=== PATIENT | female | born 1960 | race African-American/Black ===

== ENCOUNTER 2016-04-24 17:32 | Inpatient (IN) ==
[2016-04-24] MEDS ORDERED: CEFTAROLINE 600 MG in SODIUM CHLORIDE 0.9% 100 ML IV STA (22:46)
[2016-04-24 23:19] LABS: Basophils % 0.2 % (0.0-0.8); Hematocrit 34.5 VOL% (35.7-47.0); Hemoglobin 11.2 GM/DL (12.0-16.0); Immature Granulocytes % 0.5 %; Lymphocytes # 1.5 10*3/uL (1.4-4.0); Lymphocytes % 7.9 % (21.3-54.2); Mean Corpuscular HGB Conc 32.5 GM/DL (32-36); Mean Corpuscular Hemoglobin 27 PG (27-34); Mean Corpuscular Volume 82.3 FL (87-102); Mean Platelet Volume 11.7 FL (9.6-12.0); Monocytes # 0.8 10*3/uL (0.11-0.8); Monocytes % 4.4 % (1.7-12.7); Neutrophils # 16.1 10*3/uL (1.4-7.4); Platelet Count 168 T/CUMM (130-400); Red Blood Count 4.19 MC/CUMM (3.8-5.5); Red Cell Distribution Width 17.6 % (9.3-17.3); White Blood Count 18.5 T/CUMM (4-12)
[2016-04-24] MEDS ORDERED: CEFTAROLINE 600 MG VIAL IV ONE (23:20)
[2016-04-24] MEDS ORDERED: SODIUM CHLORIDE 0.9% 100 ML IV ONE (23:20)
[2016-04-24] MEDS ORDERED: ZALEPLON 5 MG CAPSULE PO PRN (23:32)
[2016-04-24] MEDS ORDERED: ONDANSETRON 4 MG/2 ML VIAL IV PRN (23:32)
[2016-04-24] MEDS ORDERED: MORPHINE 2 MG/1 ML SYRINGE IV PRN (23:32)
[2016-04-24] MEDS ORDERED: DOCUSATE SODIUM 100 MG CAPSULE PO PRN (23:32)
--- NOTE | 2016-04-24 23:32 | Emergency Department Note ---
ICraig Emily, am scribing for, and in the presence of, Evan Lopez MD 22: 58. IJohn Robert M, MD, personally performed the services described in this documentation, ascribed by Esthela Srinivasan in my presence, and it is both accurate and complete 331 . Arrival - Arrival Chief Complaint: Non-Specific Stated Complaint: DEHYDRATED, BLOOD IN URINE, TENDERNESS IN FOOT ED Nursing Triage Note: pt to triage via wc with c/o having multi c/o. pt states having right foot pain and burning onset last night with hematuria onset today. pt states having chills/headache,runny nose and nasal congestion Mode of Arrival: Wheelchair Limitations: No Limitations Source: Patient - History of Present Illness HPI Narrative: Pt is a 55 y/o female who came to ED with c/o hematuria and right foot pain that started last night. Pt has associated sxs chills, weakness, decreased appetite, but denies vomiting and SOB. Pt's PCP is Dr. Mckenzie. The right foot and lower leg are also swollen and reddened. Onset (ago): day(s) Consistency: constant Severity: mild, moderate Severity scale (1-10): 4 Quality: aching Allergies/Adverse Reactions: Allergies Allergy/AdvReac Type Severity Reaction Status Date / Time atorvastatin [From Lipitor] Allergy ANAPHYLAXIS Verified 04/24/16 18:23 duloxetine [From Cymbalta] Allergy ANAPHYLAXIS Verified 04/24/16 18:23 methotrexate Allergy ANAPHYLAXIS Verified 04/24/16 18:23 Home Medications: Home Medications Medication Instructions Recorded Confirmed Type Ferrous Sulfate 325 mg PO BID 04/24/16 04/24/16 History Furosemide Tab [Lasix Tab] 20 mg PO DAILY PRN 04/24/16 04/24/16 History Gabapentin 300 mg PO BID 04/24/16 04/24/16 History Meclizine HCl 25 mg PO Q8H PRN 04/24/16 04/24/16 History Potassium Chloride [Klor-Con M20] 20 meq PO DAILY 04/24/16 04/24/16 History Telmisartan 40 mg PO DAILY 04/24/16 04/24/16 History Review of System - Review of System 12 point system: reviewed and no additional remarkable complaints except as stated - Review of System Constitutional: Present: chills, weakness, other (decreased appetite). Absent: fever Respiratory: Absent: respiratory distress Cardiovascular: Absent: chest pain Gastrointestinal: Present: nausea, other (red, orange urine). Absent: abdominal pain, vomiting Musculoskeletal: Present: leg pain (right foot pain with swelling) Skin: Present: rash (chronic) Neurological: Absent: headache Medical,Surgical,& Family Hx - Social History Smoking Status: Never smoker Frequency of Alcohol Use: None Type of Drug Use: None Marital Status: Lives With:: Spouse Functional capacity: independent ambulation Exam Vital Signs: Vital Signs Temperature 98.3 F 04/24/16 18:17 Pulse Rate 108 H 04/24/16 18:17 Respiratory Rate 17 04/24/16 18:17 Blood Pressure 154/85 04/24/16 18:17 O2 Sat by Pulse Oximetry 96 04/24/16 18:17 - General General appearance: alert, in no apparent distress - Head Head exam: Present: atraumatic, normocephalic - Eye Eye exam: Present: PERRL, EOMI - ENT ENT exam: Present: mucous membranes moist. Absent: mucous membranes dry - Neck Neck exam: Present: full ROM. Absent: tenderness - Chest Chest inspection: Present: symmetric chest wall rise. Absent: tenderness - Respiratory Respiratory exam: Present: normal lung sounds bilaterally. Absent: respiratory distress - Cardiovascular Cardiovascular exam: Present: regular rate, normal rhythm, normal heart sounds - Abdominal Exam Abdominal exam: Present: soft. Absent: tenderness - Extremities Exam Extremities exam: Present: full ROM, tenderness (swollen broken skin anteriorly and limited to below the right knee). Absent: pedal edema - Neurological Exam Neurological exam: Present: alert, oriented X3, CN II-XII intact. Absent: motor sensory deficit - Psychiatric Psychiatric exam: Present: normal affect, normal mood - Skin Skin exam: Present: warm, dry, rash (multiple, scattered pallipar lesions on upper and lower extremities) Course - Consultations Consultation #1: Dr. Reji Mckee will evaluate and admit the patient. Time: 23:31 Results - Labs CBC & BMP: 04/24/16 23:07 Disposition Clinical Impression: Cellulitis of right lower extremity Case discussed with: patient, patient's family Disposition: Still a Patient Condition: Stable Time of Disposition: 23:31
[2016-04-24] MEDS ORDERED: FUROSEMIDE 20 MG TABLET PO PRN (23:35)
[2016-04-24] MEDS ORDERED: MECLIZINE 25 MG TABLET PO PRN (23:35)
--- NOTE | 2016-04-24 23:36 | Hospitalist History & Physical ---
Assessment and Plan (1) Cellulitis of right lower extremity Status: Acute Assessment and plan: Admitted to the hospitalist service. Start Teflaro. Follow-up blood cultures. There does not appear to be any drainage from the lower extremity. lower extremity ultrasounds negative for DVT. Current Visit: Yes (2) Prurigo nodularis Status: Chronic Assessment and plan: Chronic condition. Followed by dermatology in [place]. Current Visit: Yes (3) HTN (hypertension) Status: Chronic Assessment and plan: Continue home medications. Current Visit: No Qualifiers: Hypertension type: essential hypertension Qualified Code(s): I10 - Essential (primary) hypertension History of Present Illness Chief complaint: leg pain and swelling History of present illness: Ms. Graves is a 55 [facility] of [facility] extremity pain and swelling. She reports symptoms began 2-3 days ago and have worsened. She has tenderness redness and swelling of the right lower extremity. She suffers from a chronic condition-prurigo nodularis, which causes multiple nodules that are pruritic to her wrapped all over her skin. It is likely that 1 of these areas started the infection in her right lower extremity. She reports subjective fever and chills. No nausea or vomiting. The symptoms are acute, worsening, and are severe. She is being admitted to inpatient status for IV antibiotics for treatment of her right lower extremity cellulitis. Workup in the emergency department revealed no DVT. Home Medications Medication Instructions Recorded Confirmed Type Ferrous Sulfate 325 mg PO BID 04/24/16 04/24/16 History Furosemide Tab [Lasix Tab] 20 mg PO DAILY PRN 04/24/16 04/24/16 History Gabapentin 300 mg PO BID 04/24/16 04/24/16 History Meclizine HCl 25 mg PO Q8H PRN 04/24/16 04/24/16 History Potassium Chloride [Klor-Con M20] 20 meq PO DAILY 04/24/16 04/24/16 History Telmisartan 40 mg PO DAILY 04/24/16 04/24/16 History Allergies Allergy/AdvReac Type Severity Reaction Status Date / Time atorvastatin [From Lipitor] Allergy ANAPHYLAXIS Verified 04/24/16 18:23 duloxetine [From Cymbalta] Allergy ANAPHYLAXIS Verified 04/24/16 18:23 methotrexate Allergy ANAPHYLAXIS Verified 04/24/16 18:23 Medical,Surgical,& Family Hx - Medical History Cardio: History of: Hypertension Other: History of: Skin Problems (prurigo nodularis) - Surgical History Reproductive Surgeries: Surgical HX of;: Breast Surgery, Hysterectomy Additional Surgical History: pilonodal cyst excision - Family History Family History: Reports;: Family Hypertension - Social History Smoking Status: Never smoker Frequency of Alcohol Use: None Type of Drug Use: None Marital Status: Lives With:: Spouse Functional capacity: independent ambulation 12 point system: reviewed and no additional remarkable complaints except as stated - Constitutional Constitutional: Present: chills, fever(s) Exam - Constitutional Vitals: Period Temp Pulse Resp BP Sys/Bui Pulse Ox Last 24 Hr 98.3 F 108 17 154/85 96 Exam: Constitutional System: Mild distress. No tremulousness. Head: Normocephalic, atraumatic. Ears, Nose and Throat System: No pain or tenderness. No epistaxis or discharge Eyes System: Pupils equal, round, and reactive. Extraocular muscles intact. Neck: Supple, without adenopathy, No jugular venous distention. No thyromegaly, neck mass, or prior surgery apparent. Respiratory System: Chest clear to auscultation. Cardiovascular System: Heart with regular rate and rhythm. No murmur. GI System: Abdomen soft, nontender. Normo active bowel sounds present. Musculoskeletal System: Lower extremities with 1+ pedal edema. Right lower extremity with significant redness and tenderness to palpation. Multiple nodules are noted throughout the upper and lower extremities. Full distal pulses. Neurological System: No discernable sensory deficit. No aphasia Psychiatric System: Conversation is rational Skin: Cellulitis changes are noted in the right lower extremity. With redness, erythema, Rubor and pain on palpation of the right lower extremity. The left lower extremity does not show any signs of cellulitis or infection. Multiple nodules are noted on the upper and lower extremities consistent with the patient 's diagnosis of prurigo nodularis. Results - Labs CBC & BMP: 04/24/16 23:07 Lab Results: I have reviewed the past 24 hour labs
[2016-04-24 23:56] LABS: Apearance,Urine CLOUDY (Clear); Bacteria,Urine Few /HPF (Few); Bilirubin,Urine Negative (Negative); Blood, Urine Large mg/dL (Negative); Glucose,Urine (UA) Negative (Negative); Ketones,Urine Negative (Negative); Mucus,Urine Occasional /LPF (Occasional); Nitrite,Urine Negative (Negative); Protein,Urine 100 MG/DL; RBC,Urine 277 /HPF (0-4); Squamous Epithelial Cell,Urine Occasional /HPF (0-10); Urine Color Red (Yellow); Urine Urobilinogen < 2.0 EU/DL (0.2-1.0); WBC,Urine 16 /HPF (0-6)
[2016-04-25 00:41] LABS: Lymphocytes 8 % (20-55); Platelet Estimate Adequate; Segmented Neutrophils 88 % (50-85)
[2016-04-25 00:42] LABS: Total Cells Counted 100
[2016-04-25 02:50] LABS: Calcium 8.4 MG/DL (8.5-10.1); Magnesium 1.5 MG/DL (1.8-2.4); Osmolality,Calculated 288.7 MOS/KG (273-304)
[2016-04-25 05:15] LABS: Basophils % 0.2 % (0.0-0.8); Eosinophils % 0.1 % (0.00-10.9); Hematocrit 31.3 VOL% (35.7-47.0); Hemoglobin 10.1 GM/DL (12.0-16.0); Immature Granulocytes % 0.8 %; Immature Granulocytes Absolute 0.13 #; Lymphocytes # 1.2 10*3/uL (1.4-4.0); Lymphocytes % 7.2 % (21.3-54.2); Mean Corpuscular HGB Conc 32.3 GM/DL (32-36); Mean Corpuscular Hemoglobin 27 PG (27-34); Mean Corpuscular Volume 82.8 FL (87-102); Monocytes # 0.9 10*3/uL (0.11-0.8); Monocytes % 5.5 % (1.7-12.7); Neutrophils # 13.7 10*3/uL (1.4-7.4); Neutrophils % 86.2 % (38.7-73.9); Platelet Count 163 T/CUMM (130-400); Red Blood Count 3.78 MC/CUMM (3.8-5.5); Red Cell Distribution Width 17.6 % (9.3-17.3); White Blood Count 15.9 T/CUMM (4-12)
[2016-04-25 05:36] LABS: Hypochromasia 1+; Lymphocytes 3 % (20-55); Ovalocytes Slight; Platelet Estimate Normal; Segmented Neutrophils 92 % (50-85); Total Cells Counted 100
[2016-04-25 05:37] LABS: Microcytosis Slight
--- NOTE | 2016-04-25 06:18 | Ultrasound Report ---
Exam: Right lower extremity venous Doppler/duplex ultrasound Comparison: None Clinical history: Right leg pain and swelling Technique: Duplex scan of the right lower extremity veins using th B- mode/grayscale imaging and Dopplers spectral analysis and color flow. Findings: There is normal compression and augmentation of the right common femoral, superficial femoral and popliteal veins. The proximal right greater saphenous veins appear to be patent. Major venous structures of the right lower extremity demonstrating normal course and caliber with normal color-flow study and spectral analysis. Impression: No evidence to suggest deep venous thrombosis within the right lower extremity. 10 x 12 x 15 mm right groin node. Ultrasound images were captured and stored. PROCEDURE INTERPRETED AT [facility] DEPARTMENT OF RADIOLOGY Final Report Signed by: Dr. Jeannette Navarrete
[2016-04-25] MEDS: POTASSIUM CHLORIDE 20 MEQ TABLET PO SCH (08:59)
[2016-04-25] MEDS: GABAPENTIN 300 MG CAPSULE PO SCH ×2 (09:00→20:56)
[2016-04-25] MEDS: FERROUS SULFATE 325 MG TABLET PO SCH ×2 (09:00→20:56)
[2016-04-25] MEDS: TELMISARTAN 40 MG TABLET PO SCH (09:00)
[2016-04-25] MEDS: CEFTAROLINE 600 MG in SODIUM CHLORIDE 0.9% 100 ML IV SCH ×2 (09:00→20:56)
[2016-04-25] MEDS: ENOXAPARIN 40 MG/0.4 ML SYRINGE SUBCUT SCH ×2 (09:00→09:07)
[2016-04-25] MEDS: PANTOPRAZOLE 40 MG TABLET PO SCH (09:07)
[2016-04-25] MEDS: ACETAMINOPHEN 325 MG TABLET PO PRN ×2 (09:39→20:56)
[2016-04-25] MEDS: FUROSEMIDE 40 MG/4 ML VIAL IV SCH ×2 (10:00→15:12)
--- NOTE | 2016-04-25 11:47 | Hospitalist Progress Note ---
Assessment and Plan (1) Cellulitis of right lower extremity Status: Acute Assessment and plan: Doppler USS of the right loer extremity showed no evidence of DVT but showed a [id number] right groin node. Continue with teflaro groin node to be addressed as outpatient. Current Visit: Yes (2) Prurigo nodularis Status: Chronic Assessment and plan: Doppler USS of the right loer extremity showed no evidence of DVT but showed a [id number] right groin node. Chronic condition. Followed by dermatology in [place]. Current Visit: Yes (3) HTN (hypertension) Status: Chronic Assessment and plan: controlled. continue current regime Current Visit: No Qualifiers: Hypertension type: essential hypertension Qualified Code(s): I10 - Essential (primary) hypertension (4) Bacteriuria Status: Acute Assessment and plan: will get UC/BC, patient already on antibiotics Current Visit: Yes Hospitalist: Subjective Interval history: Patient seen and she has no new complaints, she states she feels better. Doppler USS of the right loer extremity showed no evidence of DVT but showed a [id number] right groin node. Exam - Constitutional Vitals: Period Temp Pulse Resp BP Sys/Bui Pulse Ox Last 24 Hr 98.7 F-98.8 F 90-105 14-20 138-156/73-93 92-97 General appearance: no acute distress - Head Head exam: Present: normal inspection - Respiratory Respiratory exam: Present: clear to auscultation bilaterally - Cardiovascular Cardiovascular exam: Present: regular rate and rhythm - GI/Abdominal GI/Abdominal exam: Present: normal bowel sounds - Extremities Exam Extremities exam: Present: other (right leg swelling and tenderness) - Neurological Exam Neurological exam: Present: alert, oriented X3 - Skin Skin exam: Present: other (diffuse maculo-nodular lesions) Results - Labs CBC & BMP: 04/25/16 04:44 04/24/16 22:59 Lab Results: I have reviewed the past 24 hour labs
[2016-04-26 05:15] LABS: Basophils % 0.2 % (0.0-0.8); Eosinophils # 0.4 10*3/uL (0.0-0.87); Eosinophils % 2.8 % (0.00-10.9); Hematocrit 30.9 VOL% (35.7-47.0); Hemoglobin 10.2 GM/DL (12.0-16.0); Immature Granulocytes % 0.8 %; Lymphocytes # 1.5 10*3/uL (1.4-4.0); Lymphocytes % 11.6 % (21.3-54.2); Mean Corpuscular Hemoglobin 27 PG (27-34); Mean Corpuscular Volume 80.3 FL (87-102); Mean Platelet Volume 11.9 FL (9.6-12.0); Monocytes # 0.8 10*3/uL (0.11-0.8); Monocytes % 5.9 % (1.7-12.7); Neutrophils # 10.4 10*3/uL (1.4-7.4); Neutrophils % 78.7 % (38.7-73.9); Platelet Count 185 T/CUMM (130-400); Red Blood Count 3.85 MC/CUMM (3.8-5.5); Red Cell Distribution Width 17.5 % (9.3-17.3); White Blood Count 13.2 T/CUMM (4-12)
[2016-04-26 05:40] LABS: Eosinophils 3 % (0-10); Hypochromasia 1+; Lymphocytes 6 % (20-55); Microcytosis Slight; Platelet Estimate Adequate; Segmented Neutrophils 84 % (50-85); Total Cells Counted 100
[2016-04-26 05:51] LABS: Osmolality,Calculated 287.8 MOS/KG (273-304); Potassium 3.6 MMOL/L (3.5-5.1)
[2016-04-26] MEDS: FUROSEMIDE 40 MG/4 ML VIAL IV SCH ×2 (08:40→16:47)
[2016-04-26] MEDS: FERROUS SULFATE 325 MG TABLET PO SCH ×2 (08:41→22:05)
[2016-04-26] MEDS: POTASSIUM CHLORIDE 20 MEQ TABLET PO SCH (08:41)
[2016-04-26] MEDS: PANTOPRAZOLE 40 MG TABLET PO SCH (08:42)
[2016-04-26] MEDS: GABAPENTIN 300 MG CAPSULE PO SCH ×2 (08:42→22:05)
[2016-04-26] MEDS: CEFTAROLINE 600 MG in SODIUM CHLORIDE 0.9% 100 ML IV SCH ×2 (08:43→22:06)
[2016-04-26] MEDS: TELMISARTAN 40 MG TABLET PO SCH (08:43)
--- NOTE | 2016-04-26 10:17 | Hospitalist Progress Note ---
Assessment and Plan (1) Cellulitis of right lower extremity Status: Acute Assessment and plan: Doppler USS of the right lower extremity showed no evidence of DVT but showed a [id number] right groin node.Swelling and redness are slowly improving Continue with IV teflaro, Lasix groin node to be addressed as outpatient. Current Visit: Yes (2) Prurigo nodularis Status: Chronic Assessment and plan: Doppler USS of the right lower extremity showed no evidence of DVT but showed a [id number] right groin node. Chronic condition. Followed by dermatology in [place]. Current Visit: Yes (3) HTN (hypertension) Status: Chronic Assessment and plan: controlled. Micardis will be held due to RF, we will start Norvasc 5mg daily, follow response Current Visit: No Qualifiers: Hypertension type: essential hypertension Qualified Code(s): I10 - Essential (primary) hypertension (4) Bacteriuria Status: Acute Assessment and plan: Follow UC, BC-negative so far, patient already on antibiotics Current Visit: Yes (5) Acute renal failure Status: Acute Assessment and plan: we will hold micardis and other nephrotoxics for now and reduce lasix. BMP in am. Current Visit: Yes Hospitalist: Subjective Interval history: Patient seen. Her right leg swelling is progressively improving. Exam - Constitutional Vitals: Period Temp Pulse Resp BP Sys/Bui Pulse Ox Last 24 Hr 98.3 F-99.9 F 89-95 18-20 113-136/62-71 92-97 General appearance: no acute distress, over weight - Head Head exam: Present: normal inspection - Respiratory Respiratory exam: Present: clear to auscultation bilaterally - Cardiovascular Cardiovascular exam: Present: regular rate and rhythm - GI/Abdominal GI/Abdominal exam: Present: normal bowel sounds - Extremities Exam Extremities exam: Present: other (reducing right leg swelling and tenderness)) - Skin Skin exam: Present: other (diffuse maculo-nodular lesions)) Results - Labs CBC & BMP: 04/26/16 04:38 04/26/16 04:38 Lab Results: I have reviewed the past 24 hour labs
[2016-04-26] MEDS: ENOXAPARIN 40 MG/0.4 ML SYRINGE SUBCUT SCH (16:51)
[2016-04-27 03:14] LABS: Osmolality,Calculated 288.1 MOS/KG (273-304); Potassium 3.5 MMOL/L (3.5-5.1)
[2016-04-27 03:18] LABS: Basophils % 0.1 % (0.0-0.8); Eosinophils # 0.4 10*3/uL (0.0-0.87); Eosinophils % 3.9 % (0.00-10.9); Hematocrit 30.9 VOL% (35.7-47.0); Immature Granulocytes % 0.6 %; Immature Granulocytes Absolute 0.06 #; Lymphocytes # 1.5 10*3/uL (1.4-4.0); Lymphocytes % 15.3 % (21.3-54.2); Mean Corpuscular HGB Conc 32.4 GM/DL (32-36); Mean Corpuscular Hemoglobin 27 PG (27-34); Mean Platelet Volume 12.5 FL (9.6-12.0); Monocytes # 0.7 10*3/uL (0.11-0.8); Monocytes % 6.8 % (1.7-12.7); Neutrophils # 7.1 10*3/uL (1.4-7.4); Neutrophils % 73.3 % (38.7-73.9); Platelet Count 181 T/CUMM (130-400); Red Blood Count 3.77 MC/CUMM (3.8-5.5); Red Cell Distribution Width 17.2 % (9.3-17.3); White Blood Count 9.7 T/CUMM (4-12)
[2016-04-27 05:00] LABS: Hypochromasia 1+
[2016-04-27 05:01] LABS: Microcytosis Slight; Ovalocytes Slight; Platelet Estimate Adequate
[2016-04-27] MEDS: FUROSEMIDE 40 MG/4 ML VIAL IV SCH (08:59)
[2016-04-27] MEDS: amLODIPine 5 MG TABLET PO SCH (09:00)
[2016-04-27] MEDS: POTASSIUM CHLORIDE 20 MEQ TABLET PO SCH (09:01)
[2016-04-27] MEDS: GABAPENTIN 300 MG CAPSULE PO SCH ×2 (09:01→21:58)
[2016-04-27] MEDS: FERROUS SULFATE 325 MG TABLET PO SCH ×2 (09:02→21:58)
[2016-04-27] MEDS: CEFTAROLINE 600 MG in SODIUM CHLORIDE 0.9% 100 ML IV SCH (09:02)
[2016-04-27] MEDS: PANTOPRAZOLE 40 MG TABLET PO SCH (09:02)
[2016-04-27] MEDS: ENOXAPARIN 40 MG/0.4 ML SYRINGE SUBCUT SCH (09:11)
[2016-04-27] MEDS: CEFTAROLINE 400 MG in SODIUM CHLORIDE 0.9% 100 ML IV SCH ×2 (09:11→22:03)
--- NOTE | 2016-04-27 13:47 | Hospitalist Progress Note ---
Assessment and Plan (1) Cellulitis of right lower extremity Status: Acute Assessment and plan: Doppler USS of the right lower extremity showed no evidence of DVT but showed a [id number] right groin node.Swelling and redness are slowly improving Continue with IV teflaro, Lasix groin node to be addressed as outpatient. Current Visit: Yes (2) Prurigo nodularis Status: Chronic Assessment and plan: Doppler USS of the right lower extremity showed no evidence of DVT but showed a [id number] right groin node. Chronic condition. Followed by dermatology in [place]. Current Visit: Yes (3) HTN (hypertension) Status: Chronic Assessment and plan: controlled on Norvasc. Micardis was held due to RF. Current Visit: No Qualifiers: Hypertension type: essential hypertension Qualified Code(s): I10 - Essential (primary) hypertension (4) Bacteriuria Status: Acute Assessment and plan: UC, BC-negative so far, patient already on antibiotics Current Visit: Yes (5) Acute renal failure Status: Acute Assessment and plan: not improving, we will reduce Lasix and continue to hold micardis and other nephrotoxics. BMP in am. Current Visit: Yes Hospitalist: Subjective Interval history: Patitnt seen walking around the corridor. She feels better and states her right foot feels less tight although its still swollen Exam - Constitutional Vitals: Period Temp Pulse Resp BP Sys/Bui Pulse Ox Last 24 Hr 97 F-99.1 F 74-93 20-20 117-152/61-74 93-97 General appearance: no acute distress - Head Head exam: Present: normal inspection - Respiratory Respiratory exam: Present: clear to auscultation bilaterally - Cardiovascular Cardiovascular exam: Present: regular rate and rhythm - GI/Abdominal GI/Abdominal exam: Present: normal bowel sounds - Extremities Exam Extremities exam: Present: edema - Neurological Exam Neurological exam: Present: alert, oriented X3 - Psychiatric Psychiatric exam: Present: normal affect - Skin Skin exam: Present: other ((diffuse maculo-nodular lesions))) Results - Labs CBC & BMP: 04/27/16 01:36 04/27/16 01:36 Lab Results: I have reviewed the past 24 hour labs
[2016-04-27] MEDS: FUROSEMIDE 20 MG/2 ML VIAL IV SCH (17:15)
[2016-04-28 06:58] LABS: Basophils % 0.3 % (0.0-0.8); Eosinophils # 0.5 10*3/uL (0.0-0.87); Hematocrit 30.7 VOL% (35.7-47.0); Hemoglobin 10.2 GM/DL (12.0-16.0); Immature Granulocytes % 0.7 %; Immature Granulocytes Absolute 0.05 #; Lymphocytes # 1.4 10*3/uL (1.4-4.0); Lymphocytes % 18.6 % (21.3-54.2); Mean Corpuscular HGB Conc 33.2 GM/DL (32-36); Mean Corpuscular Hemoglobin 27 PG (27-34); Mean Corpuscular Volume 80.4 FL (87-102); Mean Platelet Volume 12.5 FL (9.6-12.0); Monocytes # 0.7 10*3/uL (0.11-0.8); Monocytes % 8.7 % (1.7-12.7); Neutrophils % 64.7 % (38.7-73.9); Platelet Count 231 T/CUMM (130-400); Red Blood Count 3.82 MC/CUMM (3.8-5.5); Red Cell Distribution Width 17.4 % (9.3-17.3); White Blood Count 7.7 T/CUMM (4-12)
[2016-04-28 07:26] LABS: Eosinophils 8 % (0-10); Hypochromasia 1+; Lymphocytes 11 % (20-55); Platelet Estimate Adequate; Segmented Neutrophils 71 % (50-85); Total Cells Counted 100
[2016-04-28 07:37] LABS: Calcium 7.8 MG/DL (8.5-10.1); Osmolality,Calculated 291.7 MOS/KG (273-304)
[2016-04-28] MEDS: ENOXAPARIN 40 MG/0.4 ML SYRINGE SUBCUT SCH (08:38)
[2016-04-28] MEDS: amLODIPine 5 MG TABLET PO SCH (08:38)
[2016-04-28] MEDS: GABAPENTIN 300 MG CAPSULE PO SCH ×2 (08:39→20:39)
[2016-04-28] MEDS: POTASSIUM CHLORIDE 20 MEQ TABLET PO SCH (08:39)
[2016-04-28] MEDS: PANTOPRAZOLE 40 MG TABLET PO SCH (08:39)
[2016-04-28] MEDS: FERROUS SULFATE 325 MG TABLET PO SCH ×2 (08:39→20:39)
[2016-04-28] MEDS: FUROSEMIDE 20 MG/2 ML VIAL IV SCH ×2 (08:39→16:37)
[2016-04-28] MEDS: CEFTAROLINE 400 MG in SODIUM CHLORIDE 0.9% 100 ML IV SCH ×2 (08:53→20:39)
--- NOTE | 2016-04-28 17:09 | Hospitalist Progress Note ---
Assessment and Plan (1) Cellulitis of right lower extremity Status: Acute Assessment and plan: Doppler USS of the right lower extremity showed no evidence of DVT but showed a [id number] right groin node.Swelling and redness are slowly improving Continue with IV teflaro, Lasix groin node to be addressed as outpatient. Current Visit: Yes (2) Prurigo nodularis Status: Chronic Assessment and plan: Doppler USS of the right lower extremity showed no evidence of DVT but showed a [id number] right groin node. Chronic condition. Followed by dermatology in [place]. Current Visit: Yes (3) HTN (hypertension) Status: Chronic Assessment and plan: controlled on Norvasc. Micardis was held due to RF. Current Visit: No Qualifiers: Hypertension type: essential hypertension Qualified Code(s): I10 - Essential (primary) hypertension (4) Bacteriuria Status: Acute Assessment and plan: UC, BC-negative so far, patient already on antibiotics Current Visit: Yes (5) Acute renal failure Status: Acute Assessment and plan: not improving, continue low dose Lasix and continue to hold micardis and other nephrotoxics. BMP in am. Current Visit: Yes Hospitalist: Subjective Interval history: Patient seen. No new complaints. Exam - Constitutional Vitals: Period Temp Pulse Resp BP Sys/Bui Pulse Ox Last 24 Hr 98.1 F-98.6 F 57-89 18-20 101-146/52-82 90-97 General appearance: no acute distress - Head Head exam: Present: normal inspection - Respiratory Respiratory exam: Present: clear to auscultation bilaterally - Cardiovascular Cardiovascular exam: Present: regular rate and rhythm - GI/Abdominal GI/Abdominal exam: Present: normal bowel sounds - Extremities Exam Extremities exam: Present: other (diffuse maculo-nodular lesions)))) Results - Labs CBC & BMP: 04/28/16 05:27 04/28/16 05:27 Lab Results: I have reviewed the past 24 hour labs
[2016-04-29 05:45] LABS: Basophils % 0.3 % (0.0-0.8); Eosinophils # 0.5 10*3/uL (0.0-0.87); Eosinophils % 7.2 % (0.00-10.9); Hematocrit 30.1 VOL% (35.7-47.0); Immature Granulocytes % 0.9 %; Immature Granulocytes Absolute 0.07 #; Lymphocytes # 1.4 10*3/uL (1.4-4.0); Lymphocytes % 18.1 % (21.3-54.2); Mean Corpuscular HGB Conc 33.2 GM/DL (32-36); Mean Corpuscular Hemoglobin 27 PG (27-34); Mean Corpuscular Volume 80.5 FL (87-102); Mean Platelet Volume 12.2 FL (9.6-12.0); Monocytes # 0.8 10*3/uL (0.11-0.8); Neutrophils # 4.7 10*3/uL (1.4-7.4); Neutrophils % 62.5 % (38.7-73.9); Platelet Count 228 T/CUMM (130-400); Red Blood Count 3.74 MC/CUMM (3.8-5.5); Red Cell Distribution Width 17.5 % (9.3-17.3); White Blood Count 7.5 T/CUMM (4-12)
[2016-04-29 06:08] LABS: Osmolality,Calculated 290.7 MOS/KG (273-304); Potassium 4.2 MMOL/L (3.5-5.1)
[2016-04-29] MEDS: FUROSEMIDE 20 MG/2 ML VIAL IV SCH (08:25)
--- NOTE | 2016-04-29 08:29 | Discharge Summary ---
<Guerline Vegada - Last Filed: 04/29/16 08:46> Hospital Course - Hospital Course Hospital Course: This is a pleasant 55 year-old middle-aged female that presented to the ED on 04/24 with a chief compliant of lower extremity swelling and pain. She has a rather impressive medical history which includes: hypertension and purigo nodularis. Her purigo nodularis is chronic in nature; which is managed by dermatology locally. She reported the onset of symptoms 2 days prior to presentation. In addition, she also reported what she described as "chills and fever". She reported that the pain became very severe on the afternoon of presentation. She became alarmed and decided to seek medical attention. She was seen and evaluated. Ultrasound doppler of the bilateral lower extremities were negative for deep vein thrombosis. Blood cultures were obtained and empirical antibiotics were started She was admitted under the hospitalist services for right lower leg cellulitis and acute renal failure. Her condition has greatly improved since admission. In my opinion, she is appropriate for discharge home to follow-up with her PCP as directed. Discharge Plan - Discharge Data Disposition: Disch To Home/Self Care - Discharge Medications New Acetaminophen Tab [Tylenol Tab] 325 mg PO Q4H PRN #0 tablet PRN Reason: fever, headache/body aches amLODIPine [Norvasc] 5 mg PO DAILY #30 tablet HYDROcodone/ACETAMIN 10-325 [[place] 10-325] 1 tablet PO Q4H PRN #20 tablet PRN Reason: Pain Severe (8-10) Potassium Chloride Cap/Tab [K Dur] 10 meq PO DAILY #10 tablet Amoxicillin/Clav Tab [Augmentin Tab] 875 mg PO Q12H #14 tablet Docusate Sodium Cap [Colace Cap] 100 mg PO BID PRN #0 capsule PRN Reason: Constipation Continue Furosemide Tab [Lasix Tab] 20 mg PO DAILY PRN PRN Reason: fluid Gabapentin 300 mg PO BID Meclizine HCl 25 mg PO Q8H PRN PRN Reason: Dizziness Fexofenadine [[place]] 180 mg PO DAILY Ferrous Sulfate 325 mg PO BID Discontinued Potassium Chloride [Klor-Con M20] 20 meq PO DAILY PRN PRN Reason: Edema Telmisartan 40 mg PO DAILY - Follow Up or Referral - Forms/Instructions Exam - Constitutional Vitals: Period Temp Pulse Resp BP Sys/Bui Pulse Ox Last 24 Hr 97.9 F-98.9 F 81-91 15-20 121-139/62-75 92-97 Discharge Results Procedures and tests throughout hospitalization: Pending Orders 04/25/16 12:28 Blood Culture Stat 04/30/16 04:00 Magnesium IN AM Phosphorous IN AM Labs on day of discharge: Labs from last 24 hours 04/29/16 04/29/16 04/29/16 05:25 05:25 05:25 WBC RBC Hgb Hct MCV MCH MCHC RDW Plt Count MPV Neut % (Auto) Lymph % (Auto) [place] % (Auto) Eos % (Auto) Baso % (Auto) Neut # (Auto) Lymph # (Auto) [place] # (Auto) Eos # (Auto) Baso # (Auto) Immature Gran % Nucleated RBC % Immature Gran # Nucleated RBCs # Sodium 145 Potassium 4.2 Chloride 109 H Carbon Dioxide 27 Anion Gap 13.2 BUN 24 H Creatinine 2.20 H GFR Calculation 36 BUN/Creatinine Ratio 10.00 Glucose 81 Calculated Osmolality 290.7 Calcium 8.0 L Phosphorus 4.2 Magnesium 1.9 04/29/16 05:25 WBC 7.5 RBC 3.74 L Hgb 10.0 L Hct 30.1 L MCV 80.5 L MCH 27 MCHC 33.2 RDW 17.5 H Plt Count 228 MPV 12.2 H Neut % (Auto) 62.5 Lymph % (Auto) 18.1 L [place] % (Auto) 11.0 Eos % (Auto) 7.2 Baso % (Auto) 0.3 Neut # (Auto) 4.7 Lymph # (Auto) 1.4 [place] # (Auto) 0.8 Eos # (Auto) 0.5 Baso # (Auto) 0.0 Immature Gran % 0.9 Nucleated RBC % 0.0 Immature Gran # 0.07 Nucleated RBCs # 0.00 Sodium Potassium Chloride Carbon Dioxide Anion Gap BUN Creatinine GFR Calculation BUN/Creatinine Ratio Glucose Calculated Osmolality Calcium Phosphorus Magnesium Preliminary micro results at discharge 04/25/16 12:28 Blood Culture - Preliminary Blood No growth at 3 days 04/25/16 12:28 Blood Culture - Preliminary Blood No growth at 3 days DS: Provider Date of admission: 04/24/16 23:32 Primary care physician: . No PCP Attending physician on admission: Matilda Bridges MD Consults: 04/25/16 03:23 Consult to Pharmacy [CONS] Routine Reason for Pharmacy Consult: Adjust Meds Renal Funct Discharging clinician: Pedro Vega CNP <Matilda Bridges - Last Filed: 04/29/16 13:39> Hospital Course - Time spent with patient Time with patient DS: Greater than 30 minutes Diagnosis - Discharge Diagnosis (1) Cellulitis of right lower extremity Status: Acute (2) Prurigo nodularis Status: Chronic (3) HTN (hypertension) Status: Chronic (4) Bacteriuria Status: Acute (5) Acute renal failure Status: Acute Discharge Plan - Discharge Data Condition at Discharge: Stable Discharge Diet: advance to your usual diet Activity: resume usual activities as tolerated - Forms/Instructions Additional Discharge Instructions: follow with PCP in 1week Exam - Constitutional General appearance: no acute distress - Head Head exam: Present: normal inspection - Respiratory Respiratory exam: Present: clear to auscultation bilaterally - Cardiovascular Cardiovascular exam: Present: regular rate and rhythm - GI/Abdominal GI/Abdominal exam: Present: normal bowel sounds (other (diffuse maculo-nodular lesions))) - Extremities Exam Extremities exam: Present: other (other (diffuse maculo-nodular lesions)))
[2016-04-29] MEDS: POTASSIUM CHLORIDE 20 MEQ TABLET PO SCH (08:31)
[2016-04-29] MEDS: GABAPENTIN 300 MG CAPSULE PO SCH (08:32)
[2016-04-29] MEDS: FERROUS SULFATE 325 MG TABLET PO SCH (08:32)
[2016-04-29] MEDS: amLODIPine 5 MG TABLET PO SCH (08:32)
[2016-04-29] MEDS: ENOXAPARIN 40 MG/0.4 ML SYRINGE SUBCUT SCH (08:33)
[2016-04-29] MEDS: PANTOPRAZOLE 40 MG TABLET PO SCH (08:33)
[2016-04-29] MEDS: CEFTAROLINE 400 MG in SODIUM CHLORIDE 0.9% 100 ML IV SCH (08:48)
[2016-04-29 12:07] VITALS: BP 123/64
== END 2016-04-29 14:26 | disposition home or self-care (01) | DRG 603 ==
LOC: N.ED 17:32 → N.EDINP 23:32 → N.2E 04-25 00:20
PROVIDERS: ADMIT Internal Medicine; ATTEND Internal Medicine

== ENCOUNTER 2016-10-10 09:21 | Inpatient (IN) ==
--- NOTE | 2016-10-10 10:03 | Emergency Department Note ---
Sahil Gamez Hilary, am scribing for, and in the presence of, John Corona MD 09: 56. Chloe Gamez James D, MD, personally performed the services described in this documentation, ascribed by Stacia Baxter in my presence, and it is both accurate and complete . Arrival - Arrival Chief Complaint: Extremity Problem Stated Complaint: cellulitis,dehydration ED Nursing Triage Note: c/o right lower leg pain and redness onset 10/08/16. + subjective fever. Redness noted to right knee and right lower leg. Pain worse upon ambulation. Mode of Arrival: Wheelchair Limitations: No Limitations Source: Patient, RN Notes Reviewed Time Seen by Provider: 10/10/16 09:48 - History of Present Illness HPI Narrative: Pt is a 56 y/o female presenting to the ED with c/o right lower leg pain and redness which onset 2 days ago. Pt confirms right lower leg pain which worsened today and fever. No other complaints or problems stated in the ED. Onset (ago): day(s) Consistency: constant Severity: mild Severity scale (1-10): 1 Quality: burning Date of Last Menstrual Period: hyst Allergies/Adverse Reactions: Allergies Allergy/AdvReac Type Severity Reaction Status Date / Time atorvastatin [From Lipitor] Allergy Unknown Weakness Verified 10/10/16 09:42 duloxetine [From Cymbalta] Allergy Unknown Weakness Verified 10/10/16 09:42 methotrexate Allergy Unknown Weakness Verified 10/10/16 09:42 Home Medications: Home Medications Medication Instructions Recorded Confirmed Type Ferrous Sulfate 325 mg PO BID 04/24/16 04/25/16 History Furosemide Tab [Lasix Tab] 20 mg PO DAILY PRN 04/24/16 04/25/16 History Gabapentin 300 mg PO BID 04/24/16 04/25/16 History Meclizine HCl 25 mg PO Q8H PRN 04/24/16 04/25/16 History Fexofenadine [[place]] 180 mg PO DAILY 04/25/16 04/25/16 History Acetaminophen Tab [Tylenol Tab] 325 mg PO Q4H PRN #0 tablet 04/29/16 Rx Amoxicillin/Clav Tab [Augmentin 875 mg PO Q12H #14 tablet 04/29/16 Rx Tab] Docusate Sodium Cap [Colace Cap] 100 mg PO BID PRN #0 capsule 04/29/16 Rx HYDROcodone/ACETAMIN 10-325 [[place] 1 tablet PO Q4H PRN #20 tablet 04/29/16 Rx 10-325] Potassium Chloride Cap/Tab [K Dur] 10 meq PO DAILY #10 tablet 04/29/16 Rx amLODIPine [Norvasc] 5 mg PO DAILY #30 tablet 04/29/16 Rx Review of System - Review of System 12 point system: reviewed and no additional remarkable complaints except as stated - Review of System Constitutional: Present: fever Musculoskeletal: Present: leg pain (right leg pain, redness and swelling.) Medical,Surgical,& Family Hx - Medical History Cardio: History of: Hypertension Other: History of: Skin Problems (prurigo nodularis), Miscellaneous Medical Problems (cyst removal) - Surgical History Reproductive Surgeries: Surgical HX of;: Breast Surgery (left lumpectomy), Hysterectomy - Family History Family History: Reports;: Family Hypertension - Social History Smoking Status: Never smoker Frequency of Alcohol Use: None Type of Drug Use: None Exam Physical Examination: GENERAL: This is a well-nourished, well-developed black female in no apparent distress. VITAL SIGNS: Temperature: 98.1 Pulse: 87 Respiratory: 18 Blood Pressure: 126/ 70 O2 Sat: 100 HEENT: Head is normocephalic and atraumatic. Pupils are equally round and reactive to light. Extraocular movement are intact. Oropharynx is benign with moist mucous membranes. NECK: Neck is soft and supple without tenderness. There are no masses. There is no lymphadenopathy. LUNGS: Lungs are clear to auscultation bilaterally. Chest rises symmetrically. There is no chest wall tenderness. CV: Heart is regular rate and rhythm without murmurs, rubs, or gallops. ABDOMEN: Abdomen is soft, non-tender to palpation. There are no abnormal masses palpated. There is no organomegaly. Bowel sounds are present and active. SKIN: Skin is warm and dry. Nodular hyperpigmented rash on all extremeties EXTREMITIES: There is 2+ pedal edema. RLE is erythematous, indurated and swollen. NEUROLOGIC: Awake, alert, and oriented x4. Cranial nerves II through XII are grossly intact. There are no motorsensory deficits. PSYCHIATRIC: Normal affect. Normal mood. Vital Signs: Vital Signs Temperature 98.1 F 10/10/16 09:50 Pulse Rate 76 10/10/16 11:00 Respiratory Rate 23 10/10/16 11:00 Blood Pressure 103/56 10/10/16 11:00 O2 Sat by Pulse Oximetry 98 10/10/16 11:00 Course - Consultations Consultation #1: Discussed with hospitalist. Patient will be admitted to their service. Time: 11:21 Results - Labs CBC & BMP: 10/10/16 10:01 10/10/16 10:01 Lab Results: I have reviewed the patients labs Labs: Laboratory Tests 10/10/16 10/10/16 10/10/16 10:01 10:01 10:01 WBC 16.1 H RBC 4.42 Hgb 12.3 Hct 37.1 MCV 83.9 L Plt Count 201 Neut % (Auto) 84.3 H Lymph % (Auto) 8.4 L Neut # (Auto) 13.6 H Lymphocytes 8 L INR 1.1 Sodium 140 Potassium 3.8 Chloride 105 Carbon Dioxide 28 BUN 19 H Creatinine 1.50 H Total Bilirubin 1.10 H AST 46 H Alkaline Phosphatase 196 H Total Protein 9.0 H Albumin 2.4 L Globulin 6.6 H Albumin/Globulin Ratio 0.3 L - Diagnostic Findings Procedure: Ultrasound: report reviewed by me (VENOUS DOPPLER: No DVT) Disposition Clinical Impression: Cellulitis of right lower extremity Case discussed with: patient Disposition: Disch To Home/Self Care Condition: Stable Time of Disposition: 11:19
[2016-10-10 10:10] LABS: Basophils % 0.1 % (0.0-0.8); Eosinophils # 0.3 10*3/uL (0.0-0.87); Eosinophils % 1.8 % (0.00-10.9); Hematocrit 37.1 VOL% (35.7-47.0); Hemoglobin 12.3 GM/DL (12.0-16.0); Immature Granulocytes % 0.6 %; Immature Granulocytes Absolute 0.09 #; Lymphocytes # 1.4 10*3/uL (1.4-4.0); Lymphocytes % 8.4 % (21.3-54.2); Mean Corpuscular HGB Conc 33.2 GM/DL (32-36); Mean Corpuscular Hemoglobin 28 PG (27-34); Mean Corpuscular Volume 83.9 FL (87-102); Mean Platelet Volume 11.6 FL (9.6-12.0); Monocytes # 0.8 10*3/uL (0.11-0.8); Monocytes % 4.8 % (1.7-12.7); Neutrophils # 13.6 10*3/uL (1.4-7.4); Neutrophils % 84.3 % (38.7-73.9); Platelet Count 201 T/CUMM (130-400); Red Blood Count 4.42 MC/CUMM (3.8-5.5); Red Cell Distribution Width 15.7 % (9.3-17.3); White Blood Count 16.1 T/CUMM (4-12)
--- NOTE | 2016-10-10 10:18 | Ultrasound Report ---
Exam: US venous doppler LE RT Indication: Edema Date: 10/10/2016 9:52 AM Comparison 04/24/2016 Findings: Grayscale color flow duplex/Doppler imaging and spectral analysis waveform imaging was performed with real-time ultrasound with image stored and captured. The right common femoral, superficial femoral, popliteal saphenous veins are patent with normal augmentation and compression. There is no evidence of popliteal or Ann's cyst. Normal wave form analysis present. Normal color flow Small lymph node present. Impression: 1. No DVT PROCEDURE INTERPRETED AT [facility] DEPARTMENT OF RADIOLOGY Final Report Signed by: Dr. Oskar Novoa
[2016-10-10 10:29] LABS: Band Neutrophils 3 % (0-10); Eosinophils 1 % (0-10); Lymphocytes 8 % (20-55); Microcytosis 1+; Segmented Neutrophils 84 % (50-85); Total Cells Counted 100
[2016-10-10 10:30] LABS: Hypochromasia 1+; Platelet Estimate Normal
[2016-10-10 10:37] LABS: INR 1.1; PT Patient Result 11.5 SECS; Partial Thromboplastin Time 34.3 SECS (0-40)
[2016-10-10 10:43] LABS: Albumin 2.4 G/DL (3.4-5.0); Bilirubin,Total 1.1 MG/DL (0.2-1.0); Osmolality,Calculated 279.4 MOS/KG (273-304); Potassium 3.8 MMOL/L (3.5-5.1)
--- NOTE | 2016-10-10 12:23 | Hospitalist History & Physical ---
<Misa Goff - Last Filed: 10/10/16 12:14> Assessment and Plan - Time spent with patient Time spent with patient: Greater than 30 minutes (1) Cellulitis of right lower extremity Status: Acute Assessment and plan: 10/10/16 Admit start IV hydration PRN pain medication PRN antiemetics Start antibiotics Will discuss with Dr Tse for further recommendations with care. Current Visit: Yes History of Present Illness Chief complaint: right leg pain/cellulitis History of present illness: Ms. Graves is a 56 year old black female w/PMHx hypertension and prurigo nodularis presented to the ED for further evaluation of right leg pain, swelling and redness with onset Sunday. She reports fever, chills and an episode of nausea with vomiting. She denies shortness of breath or chest pain. IN ED: LABS: WBC 16.1, BUN 19, creatinine 1.50, AST 46, alkaline phosphatase 196. Vnous doppler right leg is negative for DVT. Hospital Services consulted for further evaluation. She denies smoking, alcohol use, or drug use. PCP: [facility] Examiner: Dr Syed at [facility] After discussion with Dr Corona in the Ed and Dr Tse with Hospital Services, it was agreed to admit patient for treatment of right leg pain and cellulitis. Home medications to be reviewed and reconciliation to follow. Home Medications Medication Instructions Recorded Confirmed Type Ferrous Sulfate 325 mg PO BID 04/24/16 10/10/16 History Furosemide Tab [Lasix Tab] 20 mg PO BID PRN 04/24/16 10/10/16 History Gabapentin 300 mg PO BID 04/24/16 10/10/16 History Meclizine HCl 25 mg PO Q8H PRN 04/24/16 10/10/16 History Acetaminophen Tab [Tylenol Tab] 325 mg PO Q4H PRN #0 tablet 04/29/16 10/10/16 Rx Cetirizine Tab [ZyrTEC Tab] 10 mg PO QAM 10/10/16 10/10/16 History Potassium Chloride Cap/Tab [K Dur] 10 meq PO BID PRN 10/10/16 10/10/16 History Telmisartan [Telmisartan] 40 mg PO QAM 10/10/16 10/10/16 History Allergies Allergy/AdvReac Type Severity Reaction Status Date / Time atorvastatin [From Lipitor] Allergy Unknown Weakness Verified 10/10/16 09:42 duloxetine [From Cymbalta] Allergy Unknown Weakness Verified 10/10/16 09:42 methotrexate Allergy Unknown Weakness Verified 10/10/16 09:42 Medical,Surgical,& Family Hx - Medical History Cardio: History of: Hypertension Other: History of: Skin Problems (prurigo nodularis), Miscellaneous Medical Problems (cyst removal (Perinodal)) - Surgical History Reproductive Surgeries: Surgical HX of;: Breast Surgery (left lumpectomy), Hysterectomy - Family History Family History: Reports;: Family Diabetes, Family Hypertension - Social History Smoking Status: Never smoker Frequency of Alcohol Use: None Type of Drug Use: None Marital Status: Lives With:: Spouse Functional capacity: independent ambulation 12 point system: reviewed and no additional remarkable complaints except as stated - Constitutional Constitutional: Present: chills, fever(s). Absent: excessive sweating - Cardiovascular Cardiovascular: Absent: chest pain at rest, chest pain with activity, dyspnea, dyspnea on exertion - Respiratory Respiratory: Absent: dyspnea, dyspnea on exertion - Musculoskeletal Musculoskeletal: Present: other (leg 5/10 to right leg with cellulitis(red and swollen)) Exam - Constitutional Vitals: Period Temp Pulse Resp BP Sys/Bui Pulse Ox Last 24 Hr 98.1 F-98.1 F 69-95 16-23 103-126/56-70 98-100 General appearance: normal weight, no acute distress - Head Head exam: Present: normal inspection - Eye Eye exam: Present: EOMI Pupils: Present: DEBRA - Neck Neck exam: Present: normal inspection. Absent: thyromegaly - Respiratory Respiratory exam: Present: clear to auscultation bilaterally. Absent: rhonchi, stridor, wheezes - Cardiovascular Cardiovascular exam: Present: regular rate and rhythm - GI/Abdominal GI/Abdominal exam: Present: normal bowel sounds, soft. Absent: tenderness, rebound - Extremities Exam Extremities exam: Present: full ROM, edema (right leg ) - Neurological Exam Neurological exam: Present: alert, oriented X3, CN II-XII intact - Psychiatric Psychiatric exam: Present: normal affect, normal mood. Absent: agitated, anxious - Skin Skin exam: Present: normal color, warm, dry, erythema (right lower leg) Results - Labs CBC & BMP: 10/10/16 10:01 10/10/16 10:01 Lab Results: I have reviewed the past 24 hour labs Labs: venous doppler: right leg: negative for DVT <Maria Del Rosario Tse - Last Filed: 10/10/16 14:14> History of Present Illness History of present illness: Ms. Graves is a 56 year old female Exam - Constitutional Vitals: Period Temp Pulse Resp BP Sys/Bui Pulse Ox Last 24 Hr 98.1 F-98.1 F 69-95 15-23 102-126/56-70 98-100 Results - Labs CBC & BMP: 10/10/16 10:01 10/10/16 10:01
[2016-10-10] MEDS ORDERED: POTASSIUM CHLORIDE 20 MEQ TABLET PO PRN (14:15)
[2016-10-10] MEDS ORDERED: MECLIZINE 25 MG TABLET PO PRN (14:15)
[2016-10-10] MEDS ORDERED: MORPHINE 2 MG/1 ML SYRINGE IV PRN (14:15)
[2016-10-10] MEDS ORDERED: FUROSEMIDE 20 MG TABLET PO PRN (14:15)
[2016-10-10] MEDS ORDERED: ACETAMINOPHEN 325 MG TABLET PO PRN (14:15)
[2016-10-10] MEDS ORDERED: ONDANSETRON 4 MG/2 ML VIAL IV PRN (14:15)
[2016-10-10] MEDS: SODIUM CHLORIDE 0.9% 1,000 ML IV SCH (16:44)
[2016-10-10] MEDS: CEFTAROLINE 600 MG in SODIUM CHLORIDE 0.9% 100 ML IV SCH (18:21)
[2016-10-10] MEDS: FERROUS SULFATE 325 MG TABLET PO SCH (20:55)
[2016-10-10] MEDS: GABAPENTIN 300 MG CAPSULE PO SCH (20:55)
[2016-10-11] MEDS: SODIUM CHLORIDE 0.9% 1,000 ML IV SCH ×5 (02:07→22:06)
[2016-10-11 03:34] LABS: Basophils % 0.2 % (0.0-0.8); Eosinophils # 0.4 10*3/uL (0.0-0.87); Eosinophils % 3.9 % (0.00-10.9); Hematocrit 30.2 VOL% (35.7-47.0); Hemoglobin 10.2 GM/DL (12.0-16.0); Immature Granulocytes % 0.7 %; Immature Granulocytes Absolute 0.07 #; Lymphocytes # 1.7 10*3/uL (1.4-4.0); Lymphocytes % 17.1 % (21.3-54.2); Mean Corpuscular HGB Conc 33.8 GM/DL (32-36); Mean Corpuscular Hemoglobin 28 PG (27-34); Mean Corpuscular Volume 82.5 FL (87-102); Mean Platelet Volume 12.4 FL (9.6-12.0); Monocytes # 0.7 10*3/uL (0.11-0.8); Neutrophils # 7.1 10*3/uL (1.4-7.4); Neutrophils % 71.1 % (38.7-73.9); Platelet Count 166 T/CUMM (130-400); Red Blood Count 3.66 MC/CUMM (3.8-5.5); Red Cell Distribution Width 15.6 % (9.3-17.3); White Blood Count 9.9 T/CUMM (4-12)
[2016-10-11 03:57] LABS: Anisocytosis 1+; Platelet Estimate Normal
[2016-10-11] MEDS: CEFTAROLINE 600 MG in SODIUM CHLORIDE 0.9% 100 ML IV SCH ×2 (04:00→16:32)
[2016-10-11 04:16] LABS: Calcium 7.9 MG/DL (8.5-10.1); Magnesium 1.8 MG/DL (1.8-2.4); Osmolality,Calculated 280.3 MOS/KG (273-304); Potassium 3.2 MMOL/L (3.5-5.1)
[2016-10-11] MEDS ORDERED: POTASSIUM CHLORIDE 20 MEQ TABLET PO ONE (08:29)
[2016-10-11] MEDS ORDERED: TELMISARTAN 40 MG TABLET PO SCH (09:00)
[2016-10-11] MEDS: PANTOPRAZOLE 40 MG TABLET PO SCH (09:19)
[2016-10-11] MEDS: FERROUS SULFATE 325 MG TABLET PO SCH ×2 (09:19→20:13)
[2016-10-11] MEDS: CETIRIZINE 10 MG TABLET PO SCH (09:19)
[2016-10-11] MEDS: GABAPENTIN 300 MG CAPSULE PO SCH ×2 (09:19→20:13)
--- NOTE | 2016-10-11 11:03 | Hospitalist Progress Note ---
Assessment and Plan (1) Cellulitis of right lower extremity Status: Acute Assessment and plan: 1)cellulitis with pustules on toes- continue Teflaro. Ask surgery to look at the pustules. She is improving overall but had to have a toenail removed when this happened before. WBC down, afebrile. BCx negative so far. 2)CECIL- creatinine down to 1.3. 3)hypokalemia- replace potassium. 4)prurigo nodularis Current Visit: No (2) Prurigo nodularis Status: Chronic Current Visit: No (3) HTN (hypertension) Status: Chronic Current Visit: No Qualifiers: Hypertension type: essential hypertension Qualified Code(s): I10 - Essential (primary) hypertension (4) Acute renal failure Status: Acute Current Visit: No Hospitalist: Subjective Interval history: Mrs Graves still has pain in her right lower leg, but notes it is less swollen and red today. No nausea, rested well. No shortness of breath. Exam - Constitutional Vitals: Period Temp Pulse Resp BP Sys/Bui Pulse Ox Last 24 Hr 97.5 F-98.9 F 69-89 15-22 102-134/49-67 93-98 General appearance: no acute distress, morbidly obese - Eye Eye exam: Present: EOMI. Absent: scleral icterus - Respiratory Respiratory exam: Present: clear to auscultation bilaterally - Cardiovascular Cardiovascular exam: Present: regular rate and rhythm - GI/Abdominal GI/Abdominal exam: Present: normal bowel sounds, soft - Extremities Exam Extremities exam: Present: other (right lower extremity with swelling, redness, both less than on admission yesterday. She now also has pustules on the medial side of her great toenail and at the base of her middle toe. No areas of drainage or fluctuance though the top of her foot is less tense.) Results - Labs CBC & BMP: 10/11/16 03:12 10/11/16 03:12 Lab Results: I have reviewed the past 24 hour labs
--- NOTE | 2016-10-11 12:00 | General Surgery Consult Note ---
Assessment and Plan (1) Cellulitis of right lower extremity Status: Acute Assessment and plan: Patient has a cellulitis of right lower extremity which is currently clinically responding to current management on Teflaro. There do not appear to be any surgical intake indications or fluid collections to warrant debridement at this time. I will check a foot x-ray as well as check inflammatory markers in the morning. We will continue to follow and monitor for any abscess formation or complication. Further imaging with pending clinical course. Current Visit: Yes History of Present Illness Chief complaint: RLE cellulitis History of present illness: Ms. Graves is a 56 year old female with past medical history of prurigo nodularis and recurrent sinusitis of the right lower extremity who is currently admitted with cellulitis of the right lower extremity. The patient reports she was admitted in April 2016 for cellulitis of the right lower extremity requiring IV antibiotics to which she responded well. There were no associated wounds or surgical requirements at that time. She was symptom-free until approximately May or June when she noted return of the saline as the right lower extremity which was treated on an outpatient basis with complete resolution. She reports approximately 3 weeks ago she had an ingrown toenail on the medial aspect of her great toe which her cut out for her. Her symptoms have resolved. Beginning approximately 3 days ago she noted increased pain in the right great toe as well as increased pain, swelling, and erythema associated with the right lower extremity. She is currently admitted for treatment of the right lower extremity cellulitis associated with leukocytosis, fever, chills, and nausea with Teflaro with good clinical response , but she does have residual pain, erythema, and edema of the right lower extremity. Surgical consultation was obtained as the patient has developed a blister over the great toe and small blisters over her foot since admission. Home Medications Medication Instructions Recorded Confirmed Type Ferrous Sulfate 325 mg PO BID 04/24/16 10/10/16 History Furosemide Tab [Lasix Tab] 40 mg PO BID PRN 04/24/16 10/10/16 History Gabapentin 300 mg PO BID 04/24/16 10/10/16 History Meclizine HCl 25 mg PO Q8H PRN 04/24/16 10/10/16 History Acetaminophen Tab [Tylenol Tab] 325 mg PO Q4H PRN #0 tablet 04/29/16 10/10/16 Rx Cetirizine Tab [ZyrTEC Tab] 10 mg PO QAM 10/10/16 10/10/16 History Potassium Chloride Cap/Tab [K Dur] 10 meq PO BID PRN 10/10/16 10/10/16 History Telmisartan [Telmisartan] 40 mg PO QAM 10/10/16 10/10/16 History Allergies Allergy/AdvReac Type Severity Reaction Status Date / Time atorvastatin [From Lipitor] Allergy Unknown Weakness Verified 10/10/16 09:42 duloxetine [From Cymbalta] Allergy Unknown Weakness Verified 10/10/16 09:42 methotrexate Allergy Unknown Weakness Verified 10/10/16 09:42 Medical,Surgical,& Family Hx - Medical History Cardio: History of: Hypertension HEENT: History of: Dental Problems (FULL DENTURES) Renal: History of: Renal Failure (ACUTE 2013) Musculoskeletal: History of: Musculoskeletal Problems (CELLULITIS RIGHT LEG) Other: History of: Skin Problems (prurigo nodularis), Miscellaneous Medical Problems (cyst removal (Perinodal)) - Surgical History Reproductive Surgeries: Surgical HX of;: Breast Surgery (left lumpectomy), Hysterectomy - Family History Family History: Reports;: Family Diabetes, Family Hypertension - Social History Smoking Status: Never smoker Frequency of Alcohol Use: None Type of Drug Use: None - Constitutional Constitutional: Present: as per HPI - Cardiovascular Cardiovascular: Absent: chest pain at rest, dyspnea on exertion - Gastrointestinal Gastrointestinal: Present: as per HPI. Absent: abdominal pain - Genitourinary Genitourinary: Absent: dysuria Hematologic/Lymphatic: Absent: easy bleeding, easy bruising Exam - Constitutional Vitals: Period Temp Pulse Resp BP Sys/Bui Pulse Ox Last 24 Hr 97.5 F-98.9 F 73-89 15-20 102-134/49-70 93-98 General appearance: no acute distress - Eye Eye exam: Present: EOMI - Extremities Exam Extremities exam: Present: other (Right lower extremity with erythema and edema of the lower leg and foot. Very small, dry pustules over the dorsum of the foot as well as a larger nodular area over the medial aspect of the great toe. The right lower extremity is diffusely sensitive there is no local fluid collection palpable. She has brisk capillary refill pulses not palpable considering the edema.) - Neurological Exam Neurological exam: Present: alert, oriented X3 Speech: Present: normal - Skin Skin exam: Present: other (Multiple lesions of bilateral upper and lower extremity associated with her prurigo nodularis) Results - Labs CBC & BMP: 10/11/16 03:12 10/11/16 03:12 Lab Results: I have reviewed the past 24 hour labs Labs: Pulmonary blood cultures are negative
--- NOTE | 2016-10-11 13:05 | XRay Report ---
XR foot 2V RT Clinical Information: toe infection Comparison: None available Findings: There is no acute fracture or evidence of dislocation. There is no joint effusion. Mild diffuse soft tissue prominence is noted, which may be related to obesity or cellulitis. No definite focal soft tissue abnormality or ulceration is visualized. Small plantar calcaneal enthesophytes are noted. Impression: No acute fracture or focal osseous abnormality. Mild diffuse soft tissue prominence which may be related to generalized edema. PROCEDURE INTERPRETED AT [facility] DEPARTMENT OF RADIOLOGY Final Report Signed by: Noah Ramirez
--- NOTE | 2016-10-11 14:17 | Hospitalist Progress Note ---
Assessment and Plan - Time spent with patient Time spent with patient: Less than 30 minutes (1) Cellulitis of right lower extremity Status: Acute Assessment and plan: 10/10/16 Admit start IV hydration PRN pain medication PRN antiemetics Start antibiotics Will discuss with Dr Tse for further recommendations with care. 10/11/16: minimal improvement in swelling and pain of right leg continue to monitor continue Teflero Surgical consult: does not recommend surgical interventions at this time, continue to monitor for skin changes or wounds further recommendations with care to follow per Dr Tse Current Visit: Yes Hospitalist: Subjective Interval history: Ms Graves seen and chart reviewed. She reports feeling a little better this morning. She verbalized her leg is not feeling as tight as it did yesterday but still having some pain. 2+ - 3+ edema and red. Exam - Constitutional Vitals: Period Temp Pulse Resp BP Sys/Bui Pulse Ox Last 24 Hr 97.5 F-98.9 F 73-89 16-20 106-134/49-70 93-98 General appearance: normal weight, no acute distress - Head Head exam: Present: normal inspection - Eye Eye exam: Present: EOMI Pupils: Present: DEBRA - Neck Neck exam: Present: normal inspection - Respiratory Respiratory exam: Present: clear to auscultation bilaterally - Cardiovascular Cardiovascular exam: Present: regular rate and rhythm - GI/Abdominal GI/Abdominal exam: Present: normal bowel sounds, soft. Absent: tenderness, rebound - Extremities Exam Extremities exam: Present: full ROM, edema (right leg/cellulitis; palpable pulse ) - Neurological Exam Neurological exam: Present: alert, oriented X3 - Psychiatric Psychiatric exam: Present: normal affect, normal mood. Absent: agitated, anxious - Skin Skin exam: Present: normal color, warm, dry, erythema (right leg, cellulitis) Results - Labs CBC & BMP: 10/11/16 03:12 10/11/16 03:12 Lab Results: I have reviewed the past 24 hour labs
--- NOTE | 2016-10-11 14:47 | Event Note ---
I evaluated the patient and agree with Dasha Christy's assessment. I do not see any evidence of an abscess or necrotic tissue that needs to be debrided. A lot of her changes of her lower extremity are chronic. There may be an element of underlying cellulitis and I agree with treatment of this medically.
[2016-10-11] MEDS: ENOXAPARIN 40 MG/0.4 ML SYRINGE SUBCUT SCH (18:18)
[2016-10-12] MEDS: SODIUM CHLORIDE 0.9% 1,000 ML IV SCH ×2 (04:37→06:08)
[2016-10-12] MEDS: CEFTAROLINE 600 MG in SODIUM CHLORIDE 0.9% 100 ML IV SCH ×2 (05:50→16:46)
[2016-10-12 07:30] LABS: Basophils % 0.3 % (0.0-0.8); Eosinophils # 0.4 10*3/uL (0.0-0.87); Eosinophils % 6.7 % (0.00-10.9); Hematocrit 32.9 VOL% (35.7-47.0); Immature Granulocytes % 1.5 %; Immature Granulocytes Absolute 0.09 #; Lymphocytes # 1.2 10*3/uL (1.4-4.0); Lymphocytes % 20.4 % (21.3-54.2); Mean Corpuscular HGB Conc 33.4 GM/DL (32-36); Mean Corpuscular Hemoglobin 28 PG (27-34); Mean Corpuscular Volume 84.4 FL (87-102); Mean Platelet Volume 11.8 FL (9.6-12.0); Monocytes # 0.5 10*3/uL (0.11-0.8); Monocytes % 8.7 % (1.7-12.7); Neutrophils # 3.7 10*3/uL (1.4-7.4); Neutrophils % 62.4 % (38.7-73.9); Platelet Count 166 T/CUMM (130-400); Red Cell Distribution Width 15.9 % (9.3-17.3)
[2016-10-12 08:08] LABS: Calcium 8.3 MG/DL (8.5-10.1); Osmolality,Calculated 284.8 MOS/KG (273-304)
[2016-10-12 08:22] LABS: Eosinophils 4 % (0-10); Hypochromasia 1+; Lymphocytes 25 % (20-55); Segmented Neutrophils 62 % (50-85); Total Cells Counted 100
[2016-10-12 08:23] LABS: Microcytosis Slight
[2016-10-12] MEDS: CETIRIZINE 10 MG TABLET PO SCH (08:47)
[2016-10-12] MEDS: GABAPENTIN 300 MG CAPSULE PO SCH ×2 (08:47→20:26)
[2016-10-12] MEDS: PANTOPRAZOLE 40 MG TABLET PO SCH (08:47)
[2016-10-12] MEDS: FERROUS SULFATE 325 MG TABLET PO SCH ×2 (08:48→20:26)
[2016-10-12] MEDS ORDERED: FUROSEMIDE 40 MG/4 ML VIAL IV ONE (09:18)
--- NOTE | 2016-10-12 09:47 | Discharge Summary ---
Hospital Course - Hospital Course Hospital Course: WBC down, creatinine 1.3 at baseline. f/u with mika in 5 days after Dalvance on discharge Diagnosis - Discharge Diagnosis (1) Cellulitis of right lower extremity Status: Acute (2) Prurigo nodularis Status: Chronic (3) HTN (hypertension) Status: Chronic (4) Acute renal failure Status: Acute Specialty Discharge - Follow Up or Referrals Follow up with: Tiffanie Mckenzie M.D. [Physician] - 5 Days (Sunday to followup cellulitis) Discharge Plan - Discharge Data Disposition: Disch To Home/Self Care Condition at Discharge: Stable Activity: resume usual activities as tolerated - Discharge Medications Continue Furosemide Tab [Lasix Tab] 40 mg PO BID PRN PRN Reason: NOTICEABLE EDEMA Gabapentin 300 mg PO BID Meclizine HCl 25 mg PO Q8H PRN PRN Reason: Dizziness Acetaminophen Tab [Tylenol Tab] 325 mg PO Q4H PRN #0 tablet PRN Reason: fever, headache/body aches Potassium Chloride Cap/Tab [K Dur] 10 meq PO BID PRN PRN Reason: WITH K DEPLETING DIURETIC Telmisartan 40 mg PO QAM Ferrous Sulfate 325 mg PO BID Cetirizine Tab [ZyrTEC Tab] 10 mg PO QAM - Follow Up or Referral - Forms/Instructions Additional Discharge Instructions: give Dalvance 1500mg IV once prior to discharge- she is an observation patient. Exam - Constitutional Vitals: Period Temp Pulse Resp BP Sys/Bui Pulse Ox Last 24 Hr 97.5 F-98.4 F 69-89 18-20 115-139/65-75 94-100 Discharge Results Procedures and tests throughout hospitalization: Pending Orders 10/10/16 10:37 Blood Culture Stat Labs on day of discharge: Labs from last 24 hours 10/12/16 10/12/16 10/12/16 06:59 06:59 06:59 WBC 6.0 D RBC 3.90 Hgb 11.0 L Hct 32.9 L MCV 84.4 L MCH 28 MCHC 33.4 RDW 15.9 Plt Count 166 MPV 11.8 Neut % (Auto) 62.4 Lymph % (Auto) 20.4 L [place] % (Auto) 8.7 Eos % (Auto) 6.7 Baso % (Auto) 0.3 Neut # (Auto) 3.7 Lymph # (Auto) 1.2 L [place] # (Auto) 0.5 Eos # (Auto) 0.4 Baso # (Auto) 0.0 Total Counted 100 Immature Gran % 1.5 Nucleated RBC % 0.0 Immature Gran # 0.09 Segmented Neutrophils 62 Lymphocytes 25 Monocytes 8 Eosinophils 4 Basophils 1.0 H Nucleated RBCs # 0.00 Immature Plt Fraction 0.0 Hypochromasia 1+ Microcytosis Slight Morphology Comment ESR Westergren Sodium 144 Potassium 4.0 Chloride 112 H Carbon Dioxide 29 Anion Gap 7.0 BUN 13 Creatinine 1.30 H GFR Calculation 66 BUN/Creatinine Ratio 10.00 Glucose 72 L Calculated Osmolality 284.8 Calcium 8.3 L Magnesium 2.0 C-Reactive Protein 11.70 H 10/12/16 06:59 WBC RBC Hgb Hct MCV MCH MCHC RDW Plt Count MPV Neut % (Auto) Lymph % (Auto) [place] % (Auto) Eos % (Auto) Baso % (Auto) Neut # (Auto) Lymph # (Auto) [place] # (Auto) Eos # (Auto) Baso # (Auto) Total Counted Immature Gran % Nucleated RBC % Immature Gran # Segmented Neutrophils Lymphocytes Monocytes Eosinophils Basophils Nucleated RBCs # Immature Plt Fraction Hypochromasia Microcytosis Morphology Comment ESR Westergren 89 H Sodium Potassium Chloride Carbon Dioxide Anion Gap BUN Creatinine GFR Calculation BUN/Creatinine Ratio Glucose Calculated Osmolality Calcium Magnesium C-Reactive Protein Preliminary micro results at discharge 10/10/16 10:37 Blood Culture - Preliminary Blood No growth at 1 day 10/10/16 10:01 Blood Culture - Preliminary Blood No growth at 1 day DS: Provider Date of admission: 10/10/16 11:44 Primary care physician: . No PCP Attending physician on admission: Maria Del Rosario Tse MD Consults: 10/11/16 11:48 Consult to Physician [CONS] Routine Comment: RLE cellulitis Consulting Provider: Nakul Chaparro III. Consulting Provider Notified: Yes When should Consulting Provider be notified: Now Person Notified: quincy called Date Notified: 10/11/16 Time Notified: 12:23 Discharging clinician: Maria Del Rosario Tse MD
[2016-10-12] MEDS ORDERED: FUROSEMIDE 40 MG TABLET PO PRN (12:32)
--- NOTE | 2016-10-12 12:33 | Hospitalist Progress Note ---
Assessment and Plan (1) Cellulitis of right lower extremity Status: Acute Assessment and plan: 1)cellulitis with pustules on toes- continue Teflaro. No need for I&D per surgery. She is improving overall but had to have a toenail removed when this happened before. WBC down, afebrile. BCx negative so far. Cannot get Dalvance because of her insurance. Will keep her here tonight for more IV antibiotics and reassess in the morning for oral antibiotics. 2)CECIL- creatinine down to 1.3, her baseline. I will heplock the IVF. Resume her lasix with an IV dose today then her home 40mg BID- clarify home dose before discharge bc she doesn't think that's actually how she takes it. 3)hypokalemia- resolved. 4)prurigo nodularis Current Visit: No (2) Prurigo nodularis Status: Chronic Current Visit: No (3) HTN (hypertension) Status: Chronic Current Visit: No Qualifiers: Hypertension type: essential hypertension Qualified Code(s): I10 - Essential (primary) hypertension (4) Acute renal failure Status: Acute Current Visit: No Hospitalist: Subjective Interval history: Mrs Graves is feeling better and notes the swelling in her right leg has gone down some. No nausea, no shortness of breath. Exam - Constitutional Vitals: Period Temp Pulse Resp BP Sys/Bui Pulse Ox Last 24 Hr 97.8 F-98.4 F 69-89 18-20 121-139/65-75 94-100 General appearance: no acute distress, morbidly obese - Head Head exam: Present: normocephalic, atraumatic - Eye Eye exam: Present: EOMI. Absent: scleral icterus - Respiratory Respiratory exam: Present: clear to auscultation bilaterally - Cardiovascular Cardiovascular exam: Present: regular rate and rhythm - GI/Abdominal GI/Abdominal exam: Present: normal bowel sounds, soft. Absent: tenderness - Extremities Exam Extremities exam: Present: other (right leg below the knee has edema and erythema that has improved from admission.) Results - Labs CBC & BMP: 10/12/16 06:59 10/12/16 06:59 Lab Results: I have reviewed the past 24 hour labs Quality Measures - VTE Contraindication to Mechanical VTE Prophylaxis: Local Inflammation Specialty Discharge - Follow Up or Referrals Follow up with: Tiffanie Mckenzie M.D. [Physician] - 10/23/16 11:00 am (Sunday to followup cellulitis 2016 at 11:00 for lab work at Dr. Mckenzie office 2016 at 11:[address] to see Dr[address] Mckenzie)
[2016-10-12] MEDS: ENOXAPARIN 40 MG/0.4 ML SYRINGE SUBCUT SCH (16:46)
[2016-10-13] MEDS: CEFTAROLINE 600 MG in SODIUM CHLORIDE 0.9% 100 ML IV SCH (04:55)
--- NOTE | 2016-10-13 08:38 | General Surgery Progress Note ---
Assessment and Plan - Time spent with patient Time spent with patient: Less than 30 minutes (1) Cellulitis of right lower extremity Status: Acute Assessment and plan: She feels well and has no complaints of pain. I do not see active necrosis or abscess or anything that needs to be surgically drained. She does not have erythema but does have some edema which is probably chronic. I will sign off for now. I will be happy to see her back in the future if needed. Current Visit: No Subjective Patient reports: Present: feels better, pain is less. Absent: fever Exam - Constitutional Vitals: Period Temp Pulse Resp BP Sys/Bui Pulse Ox Last 24 Hr 97.6 F-98.7 F 72-78 17-19 125-161/66-80 94-98 General appearance: no acute distress - Head Head exam: Present: normocephalic - Eye Eye exam: Absent: scleral icterus - Respiratory Respiratory exam: Absent: accessory muscle use - Extremities Exam Extremities exam: Present: edema, other (There is no erythema or tenderness. Her great toe has no signs of cellulitis or necrosis) Results - Labs CBC & BMP: 10/12/16 06:59 10/12/16 06:59 Lab Results: I have reviewed the past 24 hour labs Quality Measures - VTE Contraindication to Mechanical VTE Prophylaxis: Local Inflammation Specialty Discharge - Follow Up or Referrals Follow up with: Tiffanie Mckenzie M.D. [Physician] - 10/23/16 11:00 am (Sunday to followup cellulitis 2016 at 11:00 for lab work at Dr[address] Mckenzie office 2016 at 11:[address] to see Dr[address] Mckenzie)
[2016-10-13] MEDS: FERROUS SULFATE 325 MG TABLET PO SCH (09:46)
[2016-10-13] MEDS: CETIRIZINE 10 MG TABLET PO SCH (09:47)
[2016-10-13] MEDS: PANTOPRAZOLE 40 MG TABLET PO SCH (09:47)
[2016-10-13] MEDS: GABAPENTIN 300 MG CAPSULE PO SCH (09:47)
--- NOTE | 2016-10-13 10:54 | Discharge Summary ---
Hospital Course - Hospital Course Hospital Course: WBC down, creatinine 1.3 at baseline. f/u with mika in 5 days after Dalvance on discharge Diagnosis - Discharge Diagnosis (1) Cellulitis of right lower extremity Status: Acute (2) Prurigo nodularis Status: Chronic (3) HTN (hypertension) Status: Chronic (4) Acute renal failure Status: Acute Specialty Discharge - Follow Up or Referrals Follow up with: Tiffanie Mckenzie M.D. [Physician] - 10/23/16 11:00 am (Sunday to followup cellulitis 2016 at 11:00 for lab work at Dr. Mckenzie office 2016 at 11:[address] to see Dr[address] Mckenzie) Discharge Plan - Discharge Data Condition at Discharge: Stable Discharge Diet: diabetic diet, heart healthy Activity: resume usual activities as tolerated - Discharge Medications New Clindamycin HCl [Clindamycin Cap] 600 mg PO QID #40 capsule Fluconazole Tab [Diflucan Tab] 100 mg PO DAILY #7 tablet Continue Furosemide Tab [Lasix Tab] 40 mg PO BID PRN PRN Reason: NOTICEABLE EDEMA Gabapentin 300 mg PO BID Meclizine HCl 25 mg PO Q8H PRN PRN Reason: Dizziness Acetaminophen Tab [Tylenol Tab] 325 mg PO Q4H PRN #0 tablet PRN Reason: fever, headache/body aches Potassium Chloride Cap/Tab [K Dur] 10 meq PO BID PRN PRN Reason: WITH K DEPLETING DIURETIC Telmisartan 40 mg PO QAM Ferrous Sulfate 325 mg PO BID Cetirizine Tab [ZyrTEC Tab] 10 mg PO QAM - Follow Up or Referral Follow Up: Tiffanie Mckenzie M.D. [Physician] - 10/23/16 11:00 am (Sunday to followup cellulitis 2016 at 11:00 for lab work at Dr. Mckenzie office 2016 at 11:[address] to see Dr[address] Mckenzie) - Forms/Instructions Instructions: Cellulitis (DC) Exam - Constitutional Vitals: Period Temp Pulse Resp BP Sys/Bui Pulse Ox Last 24 Hr 97.6 F-98.7 F 72-78 17-19 125-161/66-80 94-98 Discharge Results Procedures and tests throughout hospitalization: Pending Orders 10/10/16 10:37 Blood Culture Stat Labs on day of discharge: Preliminary micro results at discharge 10/10/16 10:01 Blood Culture - Preliminary Blood No growth at 3 days 10/10/16 10:37 Blood Culture - Preliminary Blood No growth at 1 day DS: Provider Date of admission: 10/10/16 11:44 Primary care physician: . No PCP Attending physician on admission: Maria Del Rosario Tse MD Consults: 10/11/16 11:48 Consult to Physician [CONS] Routine Comment: RLE cellulitis Consulting Provider: Nakul Chaparro III. Consulting Provider Notified: Yes When should Consulting Provider be notified: Now Person Notified: [facility] called Date Notified: 10/11/16 Time Notified: 12:23 Discharging clinician: Maria Del Rosario Tse MD
[2016-10-13 11:09] VITALS: BP 127/72
== END 2016-10-13 14:15 | disposition home or self-care (01) | DRG 603 ==
LOC: N.ED 09:21 → N.EDINP 09:21 → OBSVTOIN 11:44 → N.EDINP 12:38 → N.3E 12:55
PROVIDERS: ADMIT Internal Medicine; ATTEND Internal Medicine